=== PATIENT | male | born 1970 | race Two or more races ===

== ENCOUNTER 2021-12-28 07:10 | Emergency (ER) | payer OTHER ==
[2021-12-28] MEDS ORDERED: NORCO 5-325 TA1 EACH PO (10:02)
[2021-12-28] MEDS ORDERED: IBUPROFEN800 MG PO (10:02)
== END 2021-12-28 10:33 | disposition home or self-care (01) ==
LOC: FER 07:10
DX: S32.028A Other fracture of second lumbar vertebra, initial encounter for closed fracture (principal); I10 Essential (primary) hypertension; Z23 Encounter for immunization; F17.200 Nicotine dependence, unspecified, uncomplicated; V49.40XA Driver injured in collision with unspecified motor vehicles in traffic accident, initial encounter
CPT/HCPCS: 72128; 72131; 90471; 90715